=== PATIENT | female | born 1990 | race African-American/Black ===

== ENCOUNTER 2019-05-15 17:53 | Emergency (ER) | payer SELFPAY ==
[~2019-05-15] VITALS: Ht 177.8 cm; Wt 61.7 kg
[2019-05-15 18:03] VITALS: Ht 177.8 cm; Wt 61.7 kg
[2019-05-15 20:11] VITALS: BP 132/82
== END 2019-05-15 20:00 | disposition home or self-care (01) ==
LOC: ED 17:53
DX: S16.1XXA Strain of muscle, fascia and tendon at neck level, initial encounter (principal); S60.222A Contusion of left hand, initial encounter; V49.49XA Driver injured in collision with other motor vehicles in traffic accident, initial encounter; Y93.I9 Activity, other involving external motion; Y92.413 State road as the place of occurrence of the external cause; Y99.8 Other external cause status

== ENCOUNTER 2019-07-27 17:04 | Emergency (ER) | payer MEDICAID ==
[~2019-07-27] VITALS: Ht 180.3 cm; Wt 64.9 kg
[2019-07-27 17:43] VITALS: Ht 180.3 cm; Wt 64.9 kg
[2019-07-27 20:01] VITALS: BP 134/80
== END 2019-07-27 20:01 | disposition home or self-care (01) ==
LOC: ED 17:04
DX: B34.9 Viral infection, unspecified (principal); H92.02 Otalgia, left ear